=== PATIENT | male | born 1965 | race Caucasian/White ===

== ENCOUNTER 2022-03-18 10:16 | Outpatient (CLI) | payer OTHER, SELFPAY ==
--- NOTE | ~2022-03-18 | XR_ITS ---
EXAMINATION: XR shoulder LT min 2V DATE: 03/18/2022 10:43 INDICATION: Left shoulder pain TECHNIQUE: AP internally and externally rotated, AP oblique externally rotated and transscapular Y vi ews of the left shoulder were obtained. COMPARISON: None FINDINGS: Normal alignment. No fracture.Mild left glenohumeral osteoarthritis with small marginal osteophytes along the glenoid. There is additional mild osteoarthritis at the left acromioclavicular joint. Soft tissues are unremarkable. Visualized portion of the left lung are clear. IMPRESSION: Mild left acromioclavicular and glenohumeral osteoarthritis. Reviewed, dictated and finalized at location B.
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
== END 2022-03-18 10:17 | disposition home or self-care (01) ==
PROVIDERS: PCP Family Medicine; Visit Provider Nurse Practitioner Family
DX: M25.512 Pain in left shoulder (principal); M54.50 Low back pain, unspecified; M19.012 Primary osteoarthritis, left shoulder
CPT/HCPCS: 72100; 73030

== ENCOUNTER 2024-01-23 13:26 | Outpatient (CLI) | payer OTHER, SELFPAY ==
--- NOTE | ~2024-01-23 | XR_ITS ---
EXAMINATION: XR chest 2V DATE: 01/23/2024 13:49 INDICATION: Cough TECHNIQUE: PA and lateral views of the chest were obtained. COMPARISON: None FINDINGS: Mild elevation the left hemidiaphragm with minimal streaky atelectasis at the left lung base. No othe r airspace opacities, pulmonary edema, pleural effusion or pneumothorax. The cardiomediastinal silhou ette is normal. Mild thoracic spondylosis with mild anterior wedging of a few mid and lower thoracic vertebral bodies and with bridging osteophytes at multiple levels consistent with diffuse idiopathic skeletal hyperostosis (DISH). IMPRESSION: 1. Minimal left basilar atelectasis. No other acute cardiopulmonary disease. Reviewed, dictated and finalized at location A.
== END 2024-01-23 13:27 | disposition home or self-care (01) ==
LOC: ANHIMG 13:28
PROVIDERS: PCP Family Medicine; Visit Provider Family Medicine
DX: R05.9 Cough, unspecified (principal); J98.11 Atelectasis
CPT/HCPCS: 71046